=== PATIENT | female | born 1970 | race Caucasian/White ===

== ENCOUNTER 2016-06-25 14:21 | Emergency (ER) | payer OTHER ==
[~2016-06-25] VITALS: Ht 175.3 cm; Wt 78.6 kg
[~2016-06-25 14:21] MED LIST: ACETAMINOPHEN325 M3 PO; ATIVAN2 MG PO; BACLOFEN10 MG PO; BUSPAR10 MG PO; BUSPAR30 MG PO; DESYREL100 MG PO; GABAPENTIN800 MG PO; HYDROXYZINE PAM25 MG PO; IBUPROFEN800 MG PO; LEVETIRACETAM500 MG PO; MELOXICAM15 MG PO; METHOCARBAMOL500 MG PO; NEURONTIN400 MG PO; NICOTINE PATCH1 EAC2 TD; NORTRIPTYLINE H25 MG PO; OMEPRAZOLE20 MG PO; OMEPRAZOLE40 M1 PO; PROTONIX20 MG PO; TYLENOL REGULA325 MG PO; VENTOLIN HFA18 GM IH; VISTARIL50 MG PO; VITAMIN D31000 UNIT PO; VYVANSE30 MG PO; ZOFRAN4 MG PO
[2016-06-25 15:08] VITALS: BP 98/82
== END 2016-06-25 17:07 | disposition left against medical advice (07) ==
LOC: EME 14:21
DX: F10.10 Alcohol abuse, uncomplicated (principal); R45.851 Suicidal ideations; Z53.21 Procedure and treatment not carried out due to patient leaving prior to being seen by health care provider
CPT/HCPCS: 80048; 85027; G0480